=== PATIENT | male | born 1960 | race Caucasian/White ===

== ENCOUNTER 2020-07-21 17:43 | Observation (INO) | payer MEDICARE, OTHER ==
[2020-07-21] MEDS ORDERED: ASPIRIN 325 MG TAB PO STA (18:02)
--- NOTE | 2020-07-21 18:02 | ED ---
General Adult HPI - General Stated complaint: CHF Time Seen by Provider: 07/21/20 17:48 Source: patient, RN notes reviewed, old records reviewed (Reviewed the limited records from transferring hospital) Mode of arrival: EMS Limitations: physical limitation - History of Present Illness Initial comments: Patient is a pleasant 60-year-old male presenting to the emergency Department as a transfer. Patient was diagnosed with congestive heart failure. Patient reportedly had a 20 pound weight gain recently and increased leg edema. Patient denies any chest discomfort. Patient denies any dyspnea. Patient does have history of similar symptoms previously associated with CHF. Patient is a poor historian and provides limited history. - Related Data Home Medications Medication Instructions Recorded Confirmed Acetaminophen Tab [Tylenol] 1,000 mg PO Q6HR PRN 02/18/14 10/20/14 Cholecalciferol [Vitamin D3 (25 1,000 unit PO DAILY 02/18/14 10/20/14 Mcg = 1000 Iu)] Glimepiride [Amaryl] 1 mg PO [id number] 02/18/14 10/20/14 Lisinopril [Zestril] 2.5 mg PO DAILY 02/18/14 10/20/14 Multivitamin [Men's Multi-Vitamin] 1 tab PO DAILY 02/18/14 10/20/14 Pravastatin Sodium [Pravachol] 40 mg PO DAILY 02/18/14 10/20/14 Warfarin [Coumadin] 15 mg PO DAILY 02/18/14 10/20/14 metFORMIN HCL [Glucophage] 500 mg PO TID 02/18/14 10/20/14 atenoloL [Tenormin] 25 mg PO DAILY 05/13/14 10/20/14 Cyanocobalamin [Vitamin B-12] 500 mcg PO BID 07/22/14 10/20/14 Previous Rx's Medication Instructions Recorded HYDROcodone/APAP 5-325MG [[place] 1 each PO Q6HR PRN #20 tab 08/24/14 5-325] Allergies Allergy/AdvReac Type Severity Reaction Status Date / Time No Known Allergies Allergy Verified 10/20/14 10:04 Review of Systems ROS Statement: Those systems with pertinent positive or pertinent negative responses have been documented in the HPI. ROS Other: All systems not noted in ROS Statement are negative. Constitutional: Denies: fever Eyes: Denies: eye pain ENT: Denies: ear pain Respiratory: Denies: cough Cardiovascular: Reports: edema. Denies: chest pain Endocrine: Denies: fatigue Gastrointestinal: Denies: abdominal pain Genitourinary: Denies: dysuria Musculoskeletal: Denies: back pain Skin: Denies: rash Neurological: Denies: weakness Past Medical History Past Medical History: Diabetes Mellitus, Deep Vein Thrombosis (DVT), Hyperlipidemia, Musculoskeletal Disorder, Skin Disorder Additional Past Medical History / Comment(s): peripheral neuropathy, RETINO IBAN,ARTHRITIS, History of Any Multi-Drug Resistant Organisms: MRSA Date of last positivie culture/infection: AUG 19 2013 per patient MDRO Source:: Left foot ulcer Past Surgical History: Orthopedic Surgery Additional Past Surgical History / Comment(s): left foot 5th toe amputation 2011 HAS BEEN GOING TO [facility] FOR PAST 2 YEARS.LT HAND PINKY FINGER SX Past Anesthesia/Blood Transfusion Reactions: No Reported Reaction Past Alcohol Use History: None Reported Additional Past Alcohol Use History / Comment(s): STARTED SMOKING AT AGE 21 QUIT AGE 31, SMOKED SOCIALLY 1 PACK PER WEEK - Past Family History Father Family Medical History: Cancer, Hypertension Additional Family Medical History / Comment(s): AT AGE 86 FROM [place] Mother Family Medical History: Diabetes Mellitus, Hypertension Additional Family Medical History / Comment(s): AT AGE 77 General Exam Limitations: physical limitation General appearance: alert, in no apparent distress, obese Head exam: Present: normocephalic Eye exam: Present: normal appearance, PERRL ENT exam: Present: normal oropharynx Neck exam: Present: normal inspection Respiratory exam: Present: normal lung sounds bilaterally Cardiovascular Exam: Present: regular rate, normal rhythm GI/Abdominal exam: Present: soft. Absent: tenderness Extremities exam: Present: pedal edema (+4 bilateral). Absent: calf tenderness Neurological exam: Present: alert Psychiatric exam: Present: normal affect, normal mood Skin exam: Present: normal color. Absent: erythema Course Vital Signs 07/21/20 07/21/20 17:54 18:14 Temperature 97.6 F Pulse Rate 64 Respiratory 16 14 Rate Blood Pressure 147/90 O2 Sat by Pulse 99 Oximetry EKG Findings - EKG Comments: EKG Findings:: Normal sinus rhythm 65. OH 180. QRS 84. QT 400. QTc 416. Normal axis. Normal QRS. No acute ST change. Medical Decision Making - Medical Decision Making Case was discussed with Dr. Becker, who will admit. Disposition Clinical Impression: Congestive heart failure (CHF) Disposition: ADMITTED IP TO THIS HOSP Condition: Serious Is patient prescribed a controlled substance at d/c from ED?: No Decision Time: 18:01
[2020-07-21] MEDS: FUROSEMIDE 10 MG/ML 4 ML VIAL IV SCH (18:40)
--- NOTE | 2020-07-21 23:43 | US ---
EXAMINATION TYPE: US venous doppler duplex LE DATE OF EXAM: 07/21/2020 10:12 PM COMPARISON: US 2012 CLINICAL HISTORY: edema. Edema. Hx DVT. Patient does take blood thinner, but is unsure which kind. SIDE PERFORMED: Bilateral TECHNIQUE: The lower extremity deep venous system is examined utilizing real time linear array sonog berna with graded compression, doppler sonography and color-flow sonography. VESSELS IMAGED: Common Femoral Vein Deep Femoral Vein Greater Saphenous Vein * Femoral Vein Popliteal Vein Small Saphenous Vein * Proximal Calf Veins (* superficial vessels) Exam is limited due to patient body habitus and inability to move into proper position for exam. Right Leg: No evidence of DVT in veins imaged at this time from prox calf veins to CFV/GSV. EIV not visualized. Limited visibility of distal femoral vein. Unable to visualize in compression views. Left Leg: Unable to visualize EIV and very limited visibility of distal femoral vein in sagittal vie w. Color flow not detected in distal femoral vein or popliteal vein. Very limited imaging and evaluat ion of popliteal vein. Possible internal echoes within popliteal vein. Cannot rule out DVT. IMPRESSION: No sign of deep vein thrombosis in the right leg. Left leg appears to have thrombus in the popliteal vein and the distal femoral vein consistent with a cute deep vein thrombosis. Exam limited by patient's size.
[2020-07-22] MEDS: NITROGLYCERIN OINT 1 INCH/GM PACKET TOPICAL SCH ×3 (01:12→12:42)
[2020-07-22 01:49] LABS: Glucose,Whole Blood 182 mg/dL (75-99)
[2020-07-22] MEDS: FUROSEMIDE 10 MG/ML 4 ML VIAL IV SCH ×2 (04:06→12:42)
[2020-07-22] MEDS ORDERED: ASPIRIN 325 MG TAB PO SCH (09:00)
[2020-07-22] MEDS: PRAVASTATIN SODIUM 40 MG TAB PO SCH (09:27)
[2020-07-22] MEDS: atenoloL 25 MG TAB PO SCH (09:27)
[2020-07-22] MEDS ORDERED: PNEUMOCOCCAL VACC-PNEUMOVAX 23 25 MCG/0.5 ML VIAL IM ONE (09:30)
[2020-07-22] MEDS ORDERED: INFLUENZA VACCINE (6 MOS+) 60 MCG/0.5 ML SYRINGE IM ONE (09:30)
[2020-07-22] MEDS ORDERED: METOCLOPRAMIDE 10 MG TAB PO PRN (10:29)
[2020-07-22] MEDS ORDERED: MAGNESIUM OXIDE 400 MG TAB PO PRN (10:29)
[2020-07-22] MEDS ORDERED: SAXAGLIPTIN HCL 5 MG PO SCH (10:30)
[2020-07-22] MEDS: APIXABAN 5 MG TAB PO SCH ×2 (11:02→20:34)
[2020-07-22] MEDS: TAMSULOSIN 0.4 MG CAP.ER.24H PO SCH (11:02)
[2020-07-22] MEDS: FINASTERIDE 5 MG TAB PO SCH (11:02)
[2020-07-22] MEDS: SPIRONOLACTONE 25 MG TAB PO SCH (11:02)
[2020-07-22] MEDS: PANTOPRAZOLE 40 MG TABLET PO SCH (11:02)
[2020-07-22] MEDS: INSULIN ASPART (NovoLOG) 100 UNIT/ML VIAL SQ SCH ×3 (12:37→20:34)
[2020-07-22] MEDS: LINAGLIPTIN 5 MG TABLET PO SCH (12:42)
[2020-07-22] MEDS: GLIMEPIRIDE 2 MG TAB PO SCH (12:42)
[2020-07-22] MEDS: metFORMIN 500 MG TAB PO SCH ×2 (12:42→17:18)
[2020-07-22 15:07] LABS: African American GFR (CKD) >90 (>60 ml/min/1.73 sqM); Blood Urea Nitrogen 24 mg/dL (9-20); Calcium 9.3 mg/dL (8.4-10.2); Chloride 94 mmol/L (98-107); Glucose 191 mg/dL (74-99); Non-African American GFR(CKD) >90 (>60 ml/min/1.73 sqM); Sodium 137 mmol/L (137-145)
[2020-07-22 15:13] LABS: Anion Gap 4 mmol/L; Carbon Dioxide 39 mmol/L (22-30)
[2020-07-22 17:16] LABS: Glucose,Whole Blood 186 mg/dL (75-99)
[2020-07-22 19:57] LABS: Glucose,Whole Blood 171 mg/dL (75-99)
--- NOTE | 2020-07-22 20:12 | P.HPIM ---
History of Present Illness H&P Date: 07/22/20 Chief Complaint: Short of breath History of presenting complaint: This is a 60-year-old patient who initially presented to [facility]. Patient's chronic stable medical conditions include diabetes mellitus, DVT in the right leg, GERD, hyperlipidemia, hypertension, peripheral neuropathy, bilateral retinopathy, home oxygen 2 L gastric ulcer arthritis BPH. Patient proctor s live alone. Does use a walker. He has home oxygen. Patient for to 3 days has been noticing increasingly short of breath. No cough no fever no chills. Appetite is okay. Patient's had chronic lower extremity swelling noticed some more swelling. He presented to the other hospital. And transferred down here. Patient's white count has been normal. Patient does state has responded on weight in the last few months. Patient was given IV Lasix in the ER. Review of systems: GEN.: Tired EYES: None HEENT: None NECK: None RESPIRATORY: Some shortness of breath CARDIOVASCULAR: As above GASTROINTESTINAL: None GENITOURINARY: None MUSCULOSKELETAL: Chronic joint pains] LYMPHATICS: None HEMATOLOGICAL: None PSYCHIATRY: None NEUROLOGICAL: Numbness tingling in the feet, uses a walker Past medical history to include: Diabetes mellitus, GERD, hyperlipidemia, hypertension, osteoarthritis, BPH, d iabetic peripheral neuropathy, chronic lower extremity edema, bilateral retinopathy with eye injections, home oxygen 2 L, DVT in the left leg, gastric ulcer, arthritis, left second and fifth amputation, multiple debridements in both the feet, claustrophobia Social history: Lives alone. Uses a walker. Smoked for 10 years stopped at age of 31. Normally a pack a day. No alcohol. Physical examination: VITAL SIGNS: 98.7, 94, 19, 131/75, 94% on 2 L GENERAL: BMI 61.6, laying in bed, awake tired. EYES: Pupils equal. Conjunctiva normal. HEENT: External appearance of nose and ears normal, oral cavity grossly normal. NECK: JVD unable to assess; masses not palpable. HEART: Heart sounds are muffled; peripheral edema/lymphedema. LUNGS: Respiratory rate increased; distant breath sounds. ABDOMEN: Soft, nontender, liver spleen not palpable, no masses palpable. PSYCH: Alert and oriented x3; mood and affect tiredl. NEUROLOGICAL: Cranial nerves grossly intact; no facial asymmetry, power grossly intact. Decreased sensation distally LYMPHATICS: No lymph nodes palpable in the axilla and neck INVESTIGATIONS, reviewed in the clinical context: BNP has shows potassium of 5 creatinine 0.9 bicarbonate 39 Lab work from [facility] showed: BNP 90, white count 6.8, hemoglobin 10.5, platelets 169, potassium 4.8, bun 25, creatinine 0.9 Chest x-ray report. No obvious pulmonary edema Assessment: -This is a patient who presents for 2 or 3 days of progressive shortness of breath. No cough no fever no chills. No sputum production. No white count. ProBNP is only 90. Patient has chronic lower extremity edema. Most likely this is obesity hypoventilation syndrome. The symptoms getting worse and patient putting on more weight. No evidence of CHF or pneumonia. -Chronic left lower extremity DVT for which patient is on eliquis -Morbid obesity BMI 61.6 -Diabetes mellitus type 2, on oral hypoglycemic -BPH -GERD -Hyperlipidemia -Essential hypertension -Primary osteoarthritis -Peripheral neuropathy secondary to diabetes -Chronic lower extremity lymphedema -Diabetic retinopathy -Chronic hypoxic is pretty failure home oxygen 2 L -Chronic gait dysfunction uses a walker -Metabolic alkalosis from diuresis Plan: Care was discussed at length with the patient. We will use a stress. DC IV Lasix. Lab the patient see a dietitian. Put the patient on a 1800 -calorie diet. Other medications to continue. Patient should be able to discharge back home in 24 hours Past Medical History Past Medical History: Diabetes Mellitus, Deep Vein Thrombosis (DVT), Eye Disorder, GERD/Reflux, Hyperlipidemia, Hypertension, Musculoskeletal Disorder, Prostate Disorder, Skin Disorder Additional Past Medical History / Comment(s): NIDDM type II, neuropathy bilateral feet/R hand, past bilateral feet/toes ulcers, pt thinks he may have a decubitus wound/blister, bilateral lower leg/pedal edema, bilateral retinopathy with eye injections, chronic respiratory failure/pt wears O2 at 2L/[place] ATC, past DVT L calf, past gastric ulcer, arthritis with chronic pain in bilateral knees, BPH History of Any Multi-Drug Resistant Organisms: MRSA Date of last positivie culture/infection: AUG 19 2013 per patient MDRO Source:: Left foot ulcer Past Surgical History: Orthopedic Surgery Additional Past Surgical History / Comment(s): L 2nd/5th toe amps, multiple debridements bilateral feet, L 5th finger injury with surgery, colonoscopy, morales since removed. Past Anesthesia/Blood Transfusion Reactions: No Reported Reaction Additional Past Anesthesia/Blood Transfusion Reaction / Comment(s): Pt has clausterphobia Smoking Status: Former smoker - Past Family History Father Family Medical History: Cancer, Diabetes Mellitus, Hypertension, Myocardial Infarction ([place]) Additional Family Medical History / Comment(s): Pt is not certain but believes father had colon cancer, heart disease Mother Family Medical History: Diabetes Mellitus, Hypertension Additional Family Medical History / Comment(s): AT AGE 77 Medications and Allergies Home Medications Medication Instructions Recorded Confirmed Type Cholecalciferol [Vitamin D3 (25 2,000 unit PO DAILY 02/18/14 07/21/20 History Mcg = 1000 Iu)] metFORMIN HCL [Glucophage] 500 mg PO TID-W/MEALS 02/18/14 07/21/20 History atenoloL [Tenormin] 50 mg PO BID 05/13/14 07/21/20 History Apixaban [Eliquis] 5 mg PO BID 07/21/20 07/21/20 History Aspirin [[place] Aspirin EC] 81 mg PO DAILY 07/21/20 07/21/20 History Dutasteride 0.5 mg PO DAILY 07/21/20 07/21/20 History Furosemide [Lasix] 40 mg PO DAILY 07/21/20 07/21/20 History Glimepiride [Amaryl] 2 mg PO DAILY 07/21/20 07/21/20 History Linagliptin [Tradjenta] 5 mg PO DAILY 07/21/20 07/21/20 History Magnesium Oxide [Magox 400] 400 mg PO DAILY PRN 07/21/20 07/21/20 History Metoclopramide [Reglan] 10 mg PO DAILY PRN 07/21/20 07/21/20 History Omeprazole [PriLOSEC] 20 mg PO DAILY 07/21/20 07/21/20 History Saxagliptin HCl [Onglyza] 5 mg PO DAILY 07/21/20 07/21/20 History Spironolactone [Aldactone] 12.5 mg PO DAILY 07/21/20 07/21/20 History Tamsulosin HCl [Flomax] 0.8 mg PO DAILY 07/21/20 07/21/20 History lisinopriL [Zestril] 20 mg PO DAILY 07/21/20 07/21/20 History Allergies Allergy/AdvReac Type Severity Reaction Status Date / Time No Known Allergies Allergy Verified 07/21/20 21:06 Physical Exam Vitals: Vital Signs Temp Pulse Pulse Resp BP BP Pulse Ox 07/22/20 08:42 73 18 111/53 98 07/22/20 06:05 98.7 F 94 19 131/75 94 L 07/22/20 03:00 74 21 136/67 94 L 07/22/20 00:56 97.3 F L 69 18 129/63 99 07/21/20 20:23 62 18 145/95 97 07/21/20 18:14 14 07/21/20 17:54 97.6 F 64 16 147/90 99 Intake and Output 07/21/20 07/22/20 07/22/20 22:59 06:59 14:59 Intake Total 240 Output Total 600 Balance -360 Intake: Oral 240 Output: Urine 600 Other: Voiding Method Urinal # Voids 4 Weight 194.591 kg 194.591 kg Results CBC & Chem 7: 07/22/20 14:20 Labs: Abnormal Lab Results - Last 24 Hours (Table) 07/22/20 Range/Units 01:47 POC Glucose (mg/dL) 182 H (75-99) mg/dL Thrombosis Risk Factor Assmnt - Choose All That Apply Any of the Below Risk Factors Present?: Yes Each Factor Represents 1 point: Age 41-60 years, Obesity (BMI >25), Swollen legs (current) Other Risk Factors: Yes Each Risk Factor Represents 3 Points: History of DVT/PE Other congenital or acquired thrombophilia - If yes, enter type in comment: No Thrombosis Risk Factor Assessment Total Risk Factor Score: 6 Thrombosis Risk Factor Assessment Level: High Risk
[2020-07-22] MEDS ORDERED: ACETAMINOPHEN TAB 325 MG TAB PO PRN (22:43)
[2020-07-23 06:28] LABS: Glucose,Whole Blood 100 mg/dL (75-99)
[2020-07-23] MEDS: INSULIN ASPART (NovoLOG) 100 UNIT/ML VIAL SQ SCH ×2 (06:30→13:21)
[2020-07-23] MEDS: metFORMIN 500 MG TAB PO SCH ×2 (06:49→13:21)
[2020-07-23] MEDS: PANTOPRAZOLE 40 MG TABLET PO SCH (06:49)
[2020-07-23] MEDS ORDERED: ASPIRIN 81 MG PO SCH (09:00)
[2020-07-23] MEDS: LINAGLIPTIN 5 MG TABLET PO SCH (09:37)
[2020-07-23] MEDS: PRAVASTATIN SODIUM 40 MG TAB PO SCH (09:37)
[2020-07-23] MEDS: TAMSULOSIN 0.4 MG CAP.ER.24H PO SCH (09:37)
[2020-07-23] MEDS: FINASTERIDE 5 MG TAB PO SCH (09:37)
[2020-07-23] MEDS: atenoloL 25 MG TAB PO SCH (09:38)
[2020-07-23] MEDS: SPIRONOLACTONE 25 MG TAB PO SCH (09:38)
[2020-07-23] MEDS: GLIMEPIRIDE 2 MG TAB PO SCH (09:38)
[2020-07-23] MEDS: APIXABAN 5 MG TAB PO SCH (09:41)
[2020-07-23 12:34] LABS: Glucose,Whole Blood 139 mg/dL (75-99)
[2020-07-23 12:35] VITALS: BP 147/64; PULSE 88; RESP 22; TEMP 97.9
[2020-07-23 13:54] VITALS: BMI 61.5
--- NOTE | 2020-07-23 19:53 | P.DS ---
Providers Date of admission: 07/21/20 18:02 Expected date of discharge: 07/23/20 Attending physician: Tone Becker Primary care physician: Osmani Cooper [facility] Course: Chief Complaint: Short of breath History of presenting complaint: This is a 60-year-old patient who initially presented to [facility]. Patient's chronic stable medical conditions include diabetes mellitus, DVT in the right leg, GERD, hyperlipidemia, hypertension, peripheral neuropathy, bilateral retinopathy, home oxygen 2 L gastric ulcer arthritis BPH. Patient does live alone. Does use a walker. He has home oxygen. Patient for to 3 days has been noticing increasingly short of breath. No cough no fever no chills. Appetite is okay. Patient's had chronic lower extremity swelling noticed some more swelling. He presented to the other hospital. And transferred down here. Patient's white count has been normal. Patient does state has responded on weight in the last few months. Patient was given IV Lasix in the ER. Patient symptoms are felt to be from obesity hypoventilation syndrome-she is put on weight last few weeks. Patient has no cough, no fever, no white count, normal BNP. Told patient to follow-up with pulmonary for workup for sleep apnea. Physical examination: VITAL SIGNS: 97.9, 88, 22, 147/64, 94% on 2 L GENERAL: BMI 61.6, laying in bed, awake comfortable EYES: Pupils equal. Conjunctiva normal. HEENT: External appearance of nose and ears normal, oral cavity grossly normal. NECK: JVD unable to assess; masses not palpable. HEART: Heart sounds are muffled; peripheral edema/lymphedema. LUNGS: Respiratory rate increased; distant breath sounds. ABDOMEN: Soft, nontender, liver spleen not palpable, no masses palpable. PSYCH: Alert and oriented x3; mood and affect tiredl. INVESTIGATIONS, reviewed in the clinical context: BNP has shows potassium of 5 creatinine 0.9 bicarbonate 39 Lab work from [facility] showed: BNP 90, white count 6.8, hemoglobin 10.5, platelets 169, potassium 4.8, bun 25, creatinine 0.9 Chest x-ray report. No obvious pulmonary edema Assessment: -Most likely this is obesity hypoventilation syndrome. POA [ No evidence of CHF or pneumonia.] -Chronic left lower extremity DVT for which patient is on eliquis -Morbid obesity BMI 61.6 -Diabetes mellitus type 2, on oral hypoglycemic -BPH -GERD -Hyperlipidemia -Essential hypertension -Primary osteoarthritis -Peripheral neuropathy secondary to diabetes -Chronic lower extremity lymphedema -Diabetic retinopathy -Chronic hypoxic is pretty failure home oxygen 2 L -Chronic gait dysfunction uses a walker -Metabolic alkalosis from diuresis Disposition: Home Patient Condition at Discharge: Stable Plan - Discharge Summary Discharge Rx Participant: No New Discharge Prescriptions: New Pravastatin Sodium [Pravachol] 40 mg PO DAILY #30 tab lisinopriL [Zestril] 2.5 mg PO DAILY #30 tab Continue metFORMIN HCL [Glucophage] 500 mg PO TID-W/MEALS Cholecalciferol [Vitamin D3 (25 Mcg = 1000 Iu)] 2,000 unit PO DAILY atenoloL [Tenormin] 50 mg PO BID Glimepiride [Amaryl] 2 mg PO DAILY Tamsulosin HCl [Flomax] 0.8 mg PO DAILY Spironolactone [Aldactone] 12.5 mg PO DAILY Linagliptin [Tradjenta] 5 mg PO DAILY Saxagliptin HCl [Onglyza] 5 mg PO DAILY Omeprazole [PriLOSEC] 20 mg PO DAILY Metoclopramide [Reglan] 10 mg PO DAILY PRN PRN Reason: Nausea And Vomiting Magnesium Oxide [Magox 400] 400 mg PO DAILY PRN PRN Reason: Gi Upset Dutasteride 0.5 mg PO DAILY Apixaban [Eliquis] 5 mg PO BID Furosemide [Lasix] 40 mg PO DAILY Aspirin [[place] Aspirin EC] 81 mg PO DAILY Discontinued lisinopriL [Zestril] 20 mg PO DAILY Discharge Medication List Cholecalciferol [Vitamin D3 (25 Mcg = 1000 Iu)] 2,000 unit PO DAILY 02/18/14 [History] metFORMIN HCL [Glucophage] 500 mg PO TID-W/MEALS 02/18/14 [History] atenoloL [Tenormin] 50 mg PO BID 05/13/14 [History] Apixaban [Eliquis] 5 mg PO BID 07/21/20 [History] Aspirin [[place] Aspirin EC] 81 mg PO DAILY 07/21/20 [History] Dutasteride 0.5 mg PO DAILY 07/21/20 [History] Furosemide [Lasix] 40 mg PO DAILY 07/21/20 [History] Glimepiride [Amaryl] 2 mg PO DAILY 07/21/20 [History] Linagliptin [Tradjenta] 5 mg PO DAILY 07/21/20 [History] Magnesium Oxide [Magox 400] 400 mg PO DAILY PRN 07/21/20 [History] Metoclopramide [Reglan] 10 mg PO DAILY PRN 07/21/20 [History] Omeprazole [PriLOSEC] 20 mg PO DAILY 07/21/20 [History] Saxagliptin HCl [Onglyza] 5 mg PO DAILY 07/21/20 [History] Spironolactone [Aldactone] 12.5 mg PO DAILY 07/21/20 [History] Tamsulosin HCl [Flomax] 0.8 mg PO DAILY 07/21/20 [History] Pravastatin Sodium [Pravachol] 40 mg PO DAILY #30 tab 07/23/20 [Rx] lisinopriL [Zestril] 2.5 mg PO DAILY #30 tab 07/23/20 [Rx] Follow up Appointment(s)/Referral(s): Osmani Ashby DO [Primary Care Provider] - 1-2 days (Call Saturday for an appointment with Dr Ashby in 2 days.) Hai Krueger MD [STAFF PHYSICIAN] - 1 Week (sleep apnea Call Saturday for an appointment with Dr Krueger in one week.) Discharge Disposition: HOME SELF-CARE
== END 2020-07-23 14:18 | disposition home or self-care (01) ==
LOC: EC 17:43 → 3SCARD 18:02
PROVIDERS: ADMIT Hospitalist; ATTEND Hospitalist
DX: R06.02 Shortness of breath (principal); R63.5 Abnormal weight gain; M79.89 Other specified soft tissue disorders; E87.3 Alkalosis; E11.9 Type 2 diabetes mellitus without complications; I82.502 Chronic embolism and thrombosis of unspecified deep veins of left lower extremity; E11.42 Type 2 diabetes mellitus with diabetic polyneuropathy; E11.319 Type 2 diabetes mellitus with unspecified diabetic retinopathy without macular edema; M19.91 Primary osteoarthritis, unspecified site; I10 Essential (primary) hypertension; I89.0 Lymphedema, not elsewhere classified; J96.11 Chronic respiratory failure with hypoxia; Z86.14 Personal history of Methicillin resistant Staphylococcus aureus infection; Z89.422 Acquired absence of other left toe(s); Z87.891 Personal history of nicotine dependence; Z98.890 Other specified postprocedural states; E66.9 Obesity, unspecified; Z68.44 Body mass index [BMI] 60.0-69.9, adult; K21.9 Gastro-esophageal reflux disease without esophagitis; Z99.81 Dependence on supplemental oxygen; N40.0 Benign prostatic hyperplasia without lower urinary tract symptoms; E78.5 Hyperlipidemia, unspecified; Z87.11 Personal history of peptic ulcer disease; Z79.01 Long term (current) use of anticoagulants; Z82.49 Family history of ischemic heart disease and other diseases of the circulatory system; Z80.0 Family history of malignant neoplasm of digestive organs; Z83.3 Family history of diabetes mellitus; Z79.84 Long term (current) use of oral hypoglycemic drugs; Z79.891 Long term (current) use of opiate analgesic; Z79.899 Other long term (current) drug therapy; R26.89 Other abnormalities of gait and mobility; Z79.82 Long term (current) use of aspirin
CPT/HCPCS: 90471; 96376; 96374; 99285; 93005; 80048; 93970; 90732; 90686; G0378 ×3; G0008; G0009; S0138 ×2; J1940 ×2